=== PATIENT | male | born 1950 | race Caucasian/White ===

== ENCOUNTER 2017-09-26 10:00 | Inpatient (IN) | payer OTHER, BC ==
[~2017-09-26] VITALS: Ht 177.8 cm; Wt 81.7 kg
[~2017-09-26 10:00] MED LIST: NASONEX17 GM BOTH NARES; TUSSIN100 MG/5 M PO; ZYRTEC10 M2 PO
[2017-09-26 11:36] LABS: HEMATOCRIT 37.8 % (38.0-50.0); HEMOGLOBIN 13.1 G/DL (12.5-16.6); MCH 31.6 PG (29.0-34.0); MCHC 34.7 G/DL (30.0-36.0); MCV 91.3 FL (86-99); NRBC (%) 0.8 /100 WBC (0-0); PLATELET COUNT 234 K/uL (156-360); RBC DIS.WIDTH-CV 12.6 % (11.8-14.6); RBC DIS.WIDTH-SD 42.5 % (39-53); RED BLOOD COUNT 4.14 M/uL (4.00-5.50); WHITE BLOOD COUNT 2.6 K/uL (4.1-10.2)
[2017-09-26 11:49] LABS: INTER. NORMALIZED RATIO 1.3
[2017-09-26 11:51] LABS: CHLORIDE 94 mEq/L (99-109); POTASSIUM 3.7 mEq/L (3.7-5.4); SODIUM 131 mEq/L (136-147)
[2017-09-26 11:52] LABS: GLUCOSE 213 mg/dL (70-99); PTT 28.1 SEC (25-37)
[2017-09-26 11:56] LABS: CREATININE 0.9 mg/dL (0.6-1.3); GFR ESTIMATE (CALCULATED) > 59 mL/min/ (58.99-99999)
[2017-09-26 11:57] LABS: TROP-I INTERPRETATION NEGATIVE; TROPONIN-I < 0.01 ng/mL (0.0-0.30); UREA NITROGEN (BUN) 10 mg/dL (9-23)
[2017-09-26] MEDS ORDERED: ACYCLOVIR400 MG PO (14:41)
[2017-09-26] MEDS ORDERED: NORVASC5 MG PO (14:42)
[2017-09-26] MEDS ORDERED: ACTOS45 MG PO (14:42)
[2017-09-26] MEDS ORDERED: BENAZEPRIL HCL40 MG PO (14:42)
[2017-09-26 14:43] LABS: HEMATOCRIT 38.1 % (38.0-50.0); HEMOGLOBIN 13.1 G/DL (12.5-16.6); MCHC 34.4 G/DL (30.0-36.0); MCV 90.3 FL (86-99); PLATELET COUNT 241 K/uL (156-360); RBC DIS.WIDTH-CV 12.8 % (11.8-14.6); RBC DIS.WIDTH-SD 42.1 % (39-53); RED BLOOD COUNT 4.22 M/uL (4.00-5.50)
[2017-09-26] MEDS ORDERED: FORTAMET1000 M1 PO (14:43)
[2017-09-26] MEDS ORDERED: VITAMIN D31000 UNI2 PO (14:43)
[2017-09-26] MEDS ORDERED: JANUVIA100 MG PO (14:43)
[2017-09-26] MEDS ORDERED: ASPIR-LOW81 MG PO (14:43)
[2017-09-26] MEDS ORDERED: CYANOCOBAL1000 MCG/2 IM (14:44)
[2017-09-26 16:11] LABS: ABS NEUTROPHIL COUNT 1.3; ANISOCYTOSIS 1+; ATYPICAL LYMPHOCYTE 7.9 %; BASOPHILS 0.9 %; EOSINOPHIL ABS CT 0; GIANT PLATELETS 1+; LYMPHOCYTES 7.9 % (15.0-45.0); METAMYELOCYTES 1.8 %; MICROCYTOSIS 1+; MONOCYTES 14.9 % (0-9.0); MYELOCYTES 0.9 %; PLAT.SUFFICIENCY ADEQUATE; SEG.NEUTROPHILS 44.7 % (46.0-76.0)
[2017-09-26 18:00] VITALS: BP 153/75
[2017-09-27 00:16] VITALS: BP 170/74
[2017-09-27 06:33] LABS: HEMATOCRIT 33.5 % (38.0-50.0); HEMOGLOBIN 11.5 G/DL (12.5-16.6); MCHC 34.3 G/DL (30.0-36.0); MCV 90.3 FL (86-99); PLATELET COUNT 229 K/uL (156-360); RBC DIS.WIDTH-CV 12.9 % (11.8-14.6); RED BLOOD COUNT 3.71 M/uL (4.00-5.50); WHITE BLOOD COUNT 2.4 K/uL (4.1-10.2)
[2017-09-27 06:39] LABS: CHLORIDE 97 MEQ/L (99-109); CREATININE 0.7 MG/DL (0.6-1.3); GFR ESTIMATE (CALCULATED) > 59 mL/min/ (58.99-99999); GLUCOSE 185 mg/dL (70-99); POTASSIUM 3.5 MEQ/L (3.7-5.4); SODIUM 132 MEQ/L (136-147); UREA NITROGEN (BUN) 10 mg/dL (9-23)
[2017-09-27 07:20] LABS: ABS NEUTROPHIL COUNT 1.2; ANISOCYTOSIS 1+; ATYPICAL LYMPHOCYTE 1.8 %; BAND NEUTROPHILS 1.7 % (0-8.0); BASOPH.STIPPLING 1+; BASOPHILS 2.6 %; EOSINOPHIL ABS CT 0.1; EOSINOPHILS 6.1 % (0-5.0); GIANT PLATELETS 2+; LYMPHOCYTES 23.7 % (15.0-45.0); METAMYELOCYTES 0.9 %; MONOCYTES 13.2 % (0-9.0); PLAT.SUFFICIENCY ADEQUATE; SMUDGE CELLS 0.9; TARGET CELLS 1+; TOXIC GRANULATION 1+
[2017-09-27 08:28] VITALS: BP 129/63
[2017-09-27 11:40] VITALS: BP 132/66
[2017-09-27 15:56] VITALS: BP 115/56
[2017-09-27 19:30] VITALS: BP 121/64
[2017-09-27 22:14] VITALS: BP 141/80
[2017-09-28 00:02] VITALS: BP 161/76
[2017-09-28 04:38] VITALS: BP 143/70
[2017-09-28 05:46] LABS: HEMATOCRIT 34.7 % (38.0-50.0); HEMOGLOBIN 11.6 G/DL (12.5-16.6); MCH 30.3 PG (29.0-34.0); MCHC 33.4 G/DL (30.0-36.0); MCV 90.6 FL (86-99); PLATELET COUNT 280 K/uL (156-360); RBC DIS.WIDTH-CV 12.9 % (11.8-14.6); RBC DIS.WIDTH-SD 42.6 % (39-53); RED BLOOD COUNT 3.83 M/uL (4.00-5.50); WHITE BLOOD COUNT 2.6 K/uL (4.1-10.2)
[2017-09-28 06:16] LABS: CHLORIDE 101 MEQ/L (99-109); CREATININE 0.7 MG/DL (0.6-1.3); GFR ESTIMATE (CALCULATED) > 59 mL/min/ (58.99-99999); GLUCOSE 195 mg/dL (70-99); POTASSIUM 3.5 MEQ/L (3.7-5.4); SODIUM 134 MEQ/L (136-147); UREA NITROGEN (BUN) 7 mg/dL (9-23)
[2017-09-28 07:15] LABS: ABS NEUTROPHIL COUNT 1.3; ANISOCYTOSIS 1+; ATYPICAL LYMPHOCYTE 4.4 %; BAND NEUTROPHILS 0.9 % (0-8.0); BASOPHILS 2.6 %; EOSINOPHIL ABS CT 0.3; GIANT PLATELETS 1+; MONOCYTES 11.3 % (0-9.0); PLAT.SUFFICIENCY ADEQUATE; SEG.NEUTROPHILS 47.8 % (46.0-76.0)
[2017-09-28 07:56] VITALS: BP 139/80
[2017-09-28] MEDS ORDERED: LEVAQUIN750 MG PO (13:20)
[2017-09-28] MEDS ORDERED: PROAIR RESPICL90 MCG IH (13:21)
== END 2017-09-28 13:49 | disposition home or self-care (01) | DRG 871 ==
LOC: EME 10:00 → EDOF 14:32 → ENRESERV 14:53 → 5EAST 17:26 → ENPENDDIS 09-28 → 5EAST 09-28 13:49
PROVIDERS: Emergency Medicine; Internal Medicine
DX: A41.9 Sepsis, unspecified organism (principal); J18.9 Pneumonia, unspecified organism; E87.1 Hypo-osmolality and hyponatremia; E87.6 Hypokalemia; R09.02 Hypoxemia; I10 Essential (primary) hypertension; E11.9 Type 2 diabetes mellitus without complications; Y95 Nosocomial condition; Z87.891 Personal history of nicotine dependence; Z79.84 Long term (current) use of oral hypoglycemic drugs; Z79.82 Long term (current) use of aspirin; Z85.72 Personal history of non-Hodgkin lymphomas
CPT/HCPCS: 71020; 71275; 80048; 80202; 82948; 83605; 84484; 85025; 85027; 85610; 85730; 87040; 87070; 87205; 87449; 87502; 93005; 94640; 94640 76; 94799; 99202; 99281; 99285; J0456; J1650; J1815; J2543; J3370; J7030; J7050